=== PATIENT | male | born 1995 | race Caucasian/White ===

== ENCOUNTER 2020-06-08 22:44 | Inpatient (IN) | payer OTHER ==
[~2020-06-08] VITALS: Ht 190.5 cm; Wt 81.3 kg
[2020-06-09 01:36] LABS: Influenza A, PCR NEGATIVE (NEGATIVE); Influenza B, PCR NEGATIVE (NEGATIVE); Resp Syncytial Virus, PCR NEGATIVE (NEGATIVE); SARS-Cov-2 (COVID-19) PCR, MMC NEGATIVE (NEGATIVE)
[2020-06-09 02:16] LABS: International Normalized Ratio 1.01; Prothrombin Time Results 10.8 Sec (9.7-11.5)
[2020-06-09 07:30] LABS: BASOPHILS ABSOLUTE AUTO 0.04 K/mm3 (0.00-0.23); BASOPHILS PERCENT AUTO 0 % (0-2); EOSINOPHILS ABSOLUTE AUTO 0.04 K/mm3 (0.00-0.68); EOSINOPHILS PERCENT AUTO 0 % (0-6); Hematocrit 39.9 % (37.0-53.0); Hemoglobin 13.5 g/dL (13.5-17.5); IMMATURE GRAN ABSOLUTE AUTO 0.02 K/mm3 (0.00-0.10); IMMATURE GRAN PERCENT AUTO 0 % (0-1); LYMPHOCYTES ABSOLUTE AUTO 2.29 K/mm3 (0.84-5.20); LYMPHOCYTES PERCENT AUTO 20 % (21-46); MONOCYTES ABSOLUTE AUTO 1.25 K/mm3 (0.16-1.47); MONOCYTES PERCENT AUTO 11 % (4-13); Mean Corpuscular HGB 29.8 pg (26.0-34.0); Mean Corpuscular HGB Conc 33.8 g/dL (31.5-36.5); Mean Corpuscular Volume 88 fL (80-100); Mean Platelet Volume 10.7 fL (9.1-12.4); NEUTROPHILS ABSOLUTE AUTO 8.04 K/mm3 (1.96-9.15); NEUTROPHILS PERCENT AUTO 69 % (41-73); Platelet Count 261 K/mm3 (150-400); RDW Coefficient Variation 13.2 % (11.7-14.2); Red Blood Cell Count 4.53 M/mm3 (4.30-5.90); White Blood Cell Count 11.68 K/mm3 (4.00-11.30)
[2020-06-09 07:59] LABS: Alanine Aminotransfer (ALT/SGP 53 U/L (12-78); Albumin, Blood 4.2 g/dL (3.4-5.0); Albumin/Globulin Ratio 1.4 (0.8-1.8); Alk Phos 73 U/L (50-136); Anion Gap 10 mmol/L (6-16); Aspartate Aminotrans (AST/SGOT 97 U/L (12-37); Blood Urea Nitrogen 9 mg/dL (8-24); CO2, Blood 23 mmol/L (21-32); Calcium, Blood 8.6 mg/dL (8.5-10.1); Chloride, Blood 110 mmol/L (98-108); Creatinine, Blood 0.75 mg/dL (0.60-1.20); Ethanol (Alcohol), Blood, Med 39 mg/dL; Globulin, Blood 3.1 g/dL (2.2-4.0); Glomerular Filtration Rate >60 (60-); Glucose, Blood 88 mg/dL (70-99); Potassium, Blood 3.9 mmol/L (3.5-5.5); Sodium, Blood 143 mmol/L (136-145); Total Protein, Blood 7.3 g/dL (6.4-8.2); Troponin I <0.015 ng/mL (0.000-0.040)
--- NOTE | 2020-06-09 10:02 | NUR ---
PATIENT WAS TRANSFERRED FROM ER TO SURGICAL AT 0900 TODAY 06/09/20. RIGHT LEG FRACTURE IS WHY HE CAME IN. HE IS ALERT AND ORIENTED X4. VS ARE WNL AND ON RA. PAIN HAS BEEN CONTROLLED SINCE LAST DOSE IN ER. HE DOES HAVE PAIN MEDICATIONS PRN ACCORDING TO EMAR ORDERS. HE IS ABLE TO WIGGLE TOES IN THE RIGHT LEG. HE HAS BEEN NPO SINCE MIDNIGHT. CALL LIGHT WITHIN REACH.
[2020-06-09 12:33] LABS: WBC Count, Synovial Fluid 39 /mm3 (0-180)
[2020-06-09 13:05] LABS: RBC Count, Synovial Fluid 166 /mm3 (0-0)
[2020-06-09 13:22] LABS: Lymphs, Synovial Fluid 6 % (0-15); Monocytes/Macrophages, Synovia 73 % (0-65); Neutrophils, Synovial Fluid 21 % (0-24)
[2020-06-09 13:24] LABS: Appearance, Synovial Fluid Clear (Clear); Color, Synovial Fluid Yellow (None-P Yel)
--- NOTE | 2020-06-09 14:41 | NUR ---
PATIENT CAME BACK FROM PACU AT 1441 TODAY 06/09/20. HE IS POD 0 OF RIGHT TIB RODDING HE IS ALERT AND ORIENTED X4. HIS VS ARE WNL AND ON RA. PAIN IS MODERATE AND WAS JUST GIVEN SOME PO PAIN MEDICATION. HE ALSO HAS OTHER PAIN MEDICATIONS PER EMAR ORDERS. HIS RIGHT LEG IS WRAPPED IN AN BARB BANDAGE. HE HAS FULL SENSATION IN ALL EXTREMITIES. DENIES NUMBNESS AND TINGLING. HE IS ABLE TO WIGGLE HIS RIGHT AND LEFT FOOT TOES. HE IS TOLERATING SMALL AMOUNTS OF PO INTAKE AT THIS TIME. HE HAS VOIDED IN THE URNIAL. CALL LIGHT WITHIN REACH. HE SEEMS TO BE RELAXED LAYING COMFORTABLY IN BED.
--- NOTE | 2020-06-09 15:04 | NUR ---
ASSUMED CARE OF PT AT APROX [id number].
--- NOTE | 2020-06-09 15:23 | NUR ---
PHYSICAL THERAPY IN TO EVAL PT
--- NOTE | 2020-06-10 04:54 | NUR ---
SHIFT SUMMARY POD#1. [id number]. DISCOMFORT CONTROLLED WITH 1 ROXICODONE Q4H. NO NAUSEA/EMESIS. BARB WRAP TO RLE C/D/I. MOVES TOES WELL, CAP REFILL BRISK, DENIES N/T BLE. PT RESTED WELL T/O NIGHT. GOOD PO INTAKE + OUTPUT. IVF + POST OP ABX PER ORDERS. PT RESTED WELL T/O NIGHT. AWAITING PT/OT.
[2020-06-10 05:54] LABS: Hematocrit 30.4 % (37.0-53.0); Hemoglobin 10.1 g/dL (13.5-17.5); Mean Corpuscular HGB 29.8 pg (26.0-34.0); Mean Corpuscular HGB Conc 33.2 g/dL (31.5-36.5); Mean Corpuscular Volume 90 fL (80-100); Mean Platelet Volume 11.2 fL (9.1-12.4); Platelet Count 223 K/mm3 (150-400); RDW Coefficient Variation 12.7 % (11.7-14.2); RDW Standard Deviation 41.7 fL (35.1-46.3); Red Blood Cell Count 3.39 M/mm3 (4.30-5.90); White Blood Cell Count 12.51 K/mm3 (4.00-11.30)
[2020-06-10] MEDS ORDERED: DOCU100 PO (10:29)
[2020-06-10] MEDS ORDERED: HYDR1TAB94 PO (10:30)
[2020-06-10] MEDS ORDERED: ASPI325EC PO (10:31)
--- NOTE | 2020-06-10 11:25 | NUR ---
DISCHARGE ESCORTED OUT AFTER CLEARING THERAPY. SCRIPTS GIVEN. UNDERSTANDS IMPORTANCE OF F/U APPOINTMENTS.
== END 2020-06-10 11:00 | disposition home or self-care (01) | DRG 494 ==
LOC: ER 22:44 → ERHOLD 06-09 01:52 → SURS 06-09 08:42
PROVIDERS: Orthopaedic Surgery; Physician Assistant; ADMIT Surgery
PROC: 0S9C3ZZ Drainage of Right Knee Joint, Percutaneous Approach (ICD-10-PCS; 2020-06-09)
PROC: 0QSG04Z Reposition Right Tibia with Internal Fixation Device, Open Approach (ICD-10-PCS; principal; 2020-06-09 09:30)
DX: S82.201A Unspecified fracture of shaft of right tibia, initial encounter for closed fracture (principal); F17.290 Nicotine dependence, other tobacco product, uncomplicated; V86.52XA Driver of snowmobile injured in nontraffic accident, initial encounter; Y92.9 Unspecified place or not applicable; Z20.822 Contact with and (suspected) exposure to COVID-19; S82.401A Unspecified fracture of shaft of right fibula, initial encounter for closed fracture; Z79.82 Long term (current) use of aspirin
CPT/HCPCS: 0241U; 29505; 36415; 70450; 71045; 72170; 73590; 80053; 83690; 84484; 85025; 85027; 85610; 85730; 86850; 86900; 86901; 89051; 93005; 93010; 96374-59; 96375; 96376; 97110; 97116; 97161; 99285-25; A9270; C1713; G0378; G0480; J0690; J1170; J1885; J2250; J2405; J2704; J2765; J3010; J7120